=== PATIENT | female | born 1985 | race Asian ===

== ENCOUNTER 2023-07-29 10:35 | Emergency (ER) | payer MEDICAID, OTHER ==
[~2023-07-29] VITALS: Ht 160 cm; Wt 72.6 kg
[2023-07-29 10:35] VITALS: BP_SYST 154; PULSE 51; RESP 18; TEMP 97.2; O2SAT 95
[2023-07-29 11:47] LABS: BASOPHILS % (AUTO) 0.4 % (0.0-2.0); EOSINOPHILS # (AUTO) 0.1 K/uL (0.0-0.4); HEMOGLOBIN 12.4 g/dL (12.0-16.0); LYMPHOCYTES # (AUTO) 1.6 K/uL (1.0-5.5); LYMPHOCYTES % (AUTO) 15.9 % (20.5-51.5); MEAN CORPUSCULAR HEMOGLOBIN 28 pg (27-31); MEAN CORPUSCULAR HGB CONC 34 % (32-36); MEAN CORPUSCULAR VOLUME 83 fL (79.0-98.0); MONOCYTES # (AUTO) 0.5 K/uL (0.0-1.0); MONOCYTES % (AUTO) 4.9 % (1.7-9.3); NEUTROPHILS # (AUTO) 7.8 K/uL (1.8-7.7); NEUTROPHILS % (AUTO) 77.8 % (40.0-70.0); PLATELET COUNT (AUTO) 295 K/uL (130-430); RED BLOOD CELL COUNT(AUTO) 4.44 MIL/uL (4.2-6.2); RED CELL DISTRIBUTION WIDTH 13.9 % (9.0-15.0)
[2023-07-29 12:29] LABS: PROTHROMBIN TIME 9.7 SECS (9.5-12.5)
[2023-07-29 12:30] LABS: INR 0.9 (0.8-1.2)
[2023-07-29 13:26] VITALS: BP_SYST 154; PULSE 51; RESP 18; TEMP 97.2; O2SAT 95
== END 2023-07-29 13:20 | disposition home or self-care (01) ==
LOC: SED 10:35
DX: O03.9 Complete or unspecified spontaneous abortion without complication (principal); Z3A.01 Less than 8 weeks gestation of pregnancy; Z79.899 Other long term (current) drug therapy
CPT/HCPCS: 36415; 76801; 76817; 81025; 84702; 85025; 85610; 85730; 86900; 86901; 99284

== ENCOUNTER 2023-08-04 13:03 | Emergency (ER) | payer MEDICAID ==
[~2023-08-04] VITALS: Ht 160 cm; Wt 72.6 kg
[2023-08-04 13:22] VITALS: BP_SYST 150; PULSE 90; RESP 18; TEMP 97.8; O2SAT 99
[2023-08-04 14:49] VITALS: BP_SYST 150; PULSE 90; RESP 18; TEMP 97.8; O2SAT 99
== END 2023-08-04 14:46 | disposition home or self-care (01) ==
LOC: SED 13:03
DX: O03.9 Complete or unspecified spontaneous abortion without complication (principal); O26.891 Other specified pregnancy related conditions, first trimester; Z3A.01 Less than 8 weeks gestation of pregnancy; Z79.899 Other long term (current) drug therapy
CPT/HCPCS: 36415; 84702; 99283